=== PATIENT | female | born 1995 | race Caucasian/White ===

== ENCOUNTER → 2022-03-06 | Outpatient (CLI) | payer OTHER ==
[2022-03-06 17:46] LABS: BASO % 0.6 % (0.0-1.0); EOS # 0.1 10^3/uL (0.0-0.5); EOS % 0.8 % (0.0-3.0); HEMATOCRIT 42.2 % (36.0-47.0); HEMOGLOBIN 13.4 g/dl (12.0-15.5); LYMPH # 2.4 10^3/uL (1.5-5.0); LYMPH % 33.7 % (24.0-44.0); MEAN CORPUSCULAR HEMOGLOBIN 28.3 pg (27.0-33.0); MEAN CORPUSCULAR HGB CONC 31.8 g/dl (32.0-36.5); MONO # 0.6 10^3/uL (0.0-0.8); MONO % 8.9 % (2.0-8.0); NEUTROPHILS % 55.7 % (36.0-66.0); PLATELET COUNT, AUTOMATED 225 10^3/uL (150-450); RED BLOOD COUNT 4.74 10^6/uL (4.00-5.40); WHITE BLOOD COUNT 7.2 10^3/uL (4.0-10.0)
[2022-03-06 18:05] LABS: BACTERIA, URINE AUTO NEGATIVE (NEGATIVE); RBC, URINE AUTO 0 /HPF (0-3); SQUAMOUS EPITHELIAL CELL UR AU 3 /HPF (0-6); WBC, URINE AUTO 2 /HPF (0-3)
[2022-03-06 18:20] LABS: ALBUMIN 3.9 GM/DL (3.2-5.2); BLOOD UREA NITROGEN 10 MG/DL (7-18); CALCIUM LEVEL 9.4 MG/DL (8.5-10.1); CARBON DIOXIDE LEVEL 27 MEQ/L (21-32); CHLORIDE LEVEL 107 MEQ/L (98-107); FREE T4 0.78 NG/DL (0.76-1.46); GLOMERULAR FILTRATION RATE > 60.0 (>60); GLUCOSE, FASTING 85 MG/DL (70-100); PHOSPHORUS LEVEL 3.3 MG/DL (2.5-4.9); POTASSIUM SERUM 4.4 MEQ/L (3.5-5.1); SODIUM LEVEL 140 MEQ/L (136-145)
[2022-03-06 18:56] LABS: HEPATITIS B SURFACE ANTIGEN NEGATIVE (NEGATIVE)
[2022-03-06 19:24] LABS: HEPATITIS B CORE ANTIBODY IGM NEGATIVE (NEGATIVE)
[2022-03-06 20:08] LABS: HEPATITIS C VIRUS ABY INDEX 9.1 INDEX (<0.8)
== END ==
LOC: M PLALAB 15:30
PROVIDERS: ATTEND Physician Assistant
DX: Z02.2 Encounter for examination for admission to residential institution (principal)

== ENCOUNTER 2022-03-22 20:02 | Emergency (ER) | payer OTHER, SELFPAY ==
[~2022-03-22] VITALS: Ht 162.6 cm; Wt 101.9 kg
[2022-03-22 20:04] VITALS: BP 133/79
[2022-03-23] MEDS ORDERED: TRAZ-252 PO (16:31)
[2022-03-23] MEDS ORDERED: DOXA2TAB3 PO (16:31)
[2022-03-23] MEDS ORDERED: ABIL1TAB13 PO (16:31)
[2022-03-23] MEDS ORDERED: KETO10TAB PO (21:01)
== END 2022-03-22 23:48 | disposition left against medical advice (07) ==
LOC: M ED 20:02
DX: Z53.29 Procedure and treatment not carried out because of patient's decision for other reasons (principal)

== ENCOUNTER 2022-03-23 15:59 | Emergency (ER) | payer OTHER, SELFPAY ==
[~2022-03-23] VITALS: Ht 162.6 cm; Wt 101.2 kg
[2022-03-23] MEDS ORDERED: ABIL1TAB13 PO (16:31)
[2022-03-23] MEDS ORDERED: TRAZ-252 PO (16:31)
[2022-03-23] MEDS ORDERED: DOXA2TAB3 PO (16:31)
[2022-03-23] MEDS ORDERED: KETOROLAC 30 MG/ML 1ML VIAL IM ONE (17:15)
[2022-03-23 17:28] LABS: BASO % 0.4 % (0.0-1.0); EOS # 0.1 10^3/uL (0.0-0.5); HEMATOCRIT 40.4 % (36.0-47.0); HEMOGLOBIN 13.5 g/dl (12.0-15.5); LYMPH # 2.2 10^3/uL (1.5-5.0); MEAN CORPUSCULAR HEMOGLOBIN 29.2 pg (27.0-33.0); MEAN CORPUSCULAR HGB CONC 33.4 g/dl (32.0-36.5); MEAN CORPUSCULAR VOLUME 87.3 fl (80.0-96.0); MONO # 0.6 10^3/uL (0.0-0.8); NEUTROPHILS # 3.8 10^3/uL (1.5-8.5); NEUTROPHILS % 56.3 % (36.0-66.0); PLATELET COUNT, AUTOMATED 226 10^3/uL (150-450); RED BLOOD COUNT 4.63 10^6/uL (4.00-5.40); WHITE BLOOD COUNT 6.7 10^3/uL (4.0-10.0)
[2022-03-23 17:43] LABS: ALT/SGPT 25 U/L (12-78); BILIRUBIN,DIRECT < 0.1 MG/DL (0.0-0.2); BILIRUBIN,TOTAL 0.3 MG/DL (0.2-1.0); BLOOD UREA NITROGEN 11 MG/DL (7-18); CALCIUM LEVEL 9.8 MG/DL (8.5-10.1); CARBON DIOXIDE LEVEL 26 MEQ/L (21-32); CHLORIDE LEVEL 105 MEQ/L (98-107); CREATININE FOR GFR 0.59 MG/DL (0.55-1.30); GLOMERULAR FILTRATION RATE > 60.0 (>60); GLUCOSE, FASTING 90 MG/DL (70-100); LIPASE 102 U/L (73-393); POTASSIUM SERUM 5.6 MEQ/L (3.5-5.1); SODIUM LEVEL 134 MEQ/L (136-145); TOTAL PROTEIN 7.7 GM/DL (6.4-8.2)
[2022-03-23 17:59] LABS: HCG, SERUM QUALITATIVE NEGATIVE (NEGATIVE)
[2022-03-23] MEDS ORDERED: NS 1,000 ML IV ONE (18:05)
[2022-03-23] MEDS ORDERED: KETO10TAB PO (21:01)
[2022-03-23 21:33] VITALS: BP 132/67
== END 2022-03-23 21:36 | disposition home or self-care (01) ==
LOC: M ED 15:59
DX: E86.0 Dehydration (principal); N83.292 Other ovarian cyst, left side; N20.0 Calculus of kidney; Z79.899 Other long term (current) drug therapy
CPT/HCPCS: 74176; 80048; 80076; 83690; 84702; 84703; 85025; 96360; 96361; 96372; 99284; J1885